=== PATIENT | female | born 1940 | race Caucasian/White ===

== ENCOUNTER 2023-03-25 14:40 | Outpatient (CLI) | payer MEDICARE, BC, SELFPAY | END 2023-03-25 14:41 | disposition home or self-care (01) | LOC: LKVREF 14:42 | PROVIDERS: PCP Physician Assistant Medical; Visit Provider Physician Assistant Medical | DX: E78.5 Hyperlipidemia, unspecified (principal); I10 Essential (primary) hypertension; E11.9 Type 2 diabetes mellitus without complications; R73.01 Impaired fasting glucose; R20.9 Unspecified disturbances of skin sensation | CPT/HCPCS: 80053; 80061; 82043; 82570; 82607; 84443 ==

== ENCOUNTER 2024-04-01 13:23 | Outpatient (CLI) | payer MEDICARE, BC, SELFPAY | END 2024-04-01 13:24 | disposition home or self-care (01) | PROVIDERS: PCP Physician Assistant Medical; Visit Provider Physician Assistant Medical | DX: I10 Essential (primary) hypertension (principal); E78.5 Hyperlipidemia, unspecified; E11.9 Type 2 diabetes mellitus without complications; R20.9 Unspecified disturbances of skin sensation; Z13.6 Encounter for screening for cardiovascular disorders; Z13.0 Encounter for screening for diseases of the blood and blood-forming organs and certain disorders involving the immune mechanism; Z13.1 Encounter for screening for diabetes mellitus | CPT/HCPCS: 80053; 80061; 82043; 82570; 82607; 84443 ==